=== PATIENT | female | born 1960 | race Caucasian/White ===

== ENCOUNTER 2020-10-31 04:35 | Emergency (ER) | payer OTHER, SELFPAY ==
[2020-10-31] VITALS (12 sets, daily range): BP systolic 137–165; BP diastolic 70–92; PULSE 67–73; RESP 16–18; TEMP 36.5; O2SAT 95–100
[2020-10-31] MEDS: methylPREDNISolone SOD SUCC 125 MG VIAL IV PUSH (05:06)
[2020-10-31] MEDS: FAMOTIDINE 20 MG/2 ML VIAL IV PUSH (05:06)
[2020-10-31] MEDS: EPINEPHrine HCL INJ 1 MG/ML AMPUL 0.3 MG IM (05:06)
--- NOTE | 2020-10-31 05:14 | ED.ALLEREA ---
HPI - Allergic Reaction General Chief complaint: Allergic Reaction Stated complaint: allergic reaction Time Seen by Provider: 10/31/20 04:44 History of Present Illness HPI narrative: Patient 60-year-old female who presents to emergency department with chief complaint of allergic reaction. The patient reports that she was on penicillin and then started having urticaria and had some facial swelling. Patient states that her primary doctor started her on prednisone she was taking 60 mg daily and then titrated down to 40 mg. The patient states that when she titrated down to 40 mg she started having residual urticaria patient took some oral Benadryl but continued to have itching. Patient was transported by EMS and was given Benadryl in route to the emergency department. Patient states she is feeling a little bit better now did have some facial swelling during this time. Related Data Home Medications Medication Instructions Recorded Confirmed penicillin V potassium 500 mg PO Q6H 10/31/20 prednisone 0 mg PO PER PKG DIR 10/31/20 Allergies Allergy/AdvReac Type Severity Reaction Status Date / Time erythromycin base Allergy Unknown Unknown Verified 09/21/20 14:29 Sulfa (Sulfonamide Allergy Unknown UNKNOWN Verified 09/21/20 14:29 Antibiotics) Review of Systems Review of Systems: Narrative: CONSTITUTIONAL: Denies fever, chills, or sweats. EYES: Denies visual changes, redness, or discharge. ENT: Denies rhinorrhea, congestion, sore throat, or otalgia. CARDIOVASCULAR: Denies chest pain, palpitations, or edema. RESPIRATORY: Denies cough or dyspnea. GASTROINTESTINAL: Denies abdominal pain, nausea, vomiting, or diarrhea. GENITOURINARY: Denies dysuria or hematuria. SKIN: Denies rash or itching. MUSCULOSKELETAL: Denies back pain, joint pain, or myalgia. NEUROLOGIC: Denies headache, numbness, or weakness. PSYCHIATRIC: Denies anxiety or depression. A 10 system review of systems was completed on the patient and is negative except for what is stated in the HPI. Nursing and ancillary documentation was reviewed. [facility] Past Medical History Medical History (Updated 10/31/20 @ 06:45 by Dangelo Pepe MD) Arthralgia of hands, bilateral Chronic rhinitis Essential hypertension FH: colon cancer Gastro-esophageal reflux disease without esophagitis H/O migraine Hypothyroidism Mixed hyperlipidemia Neck pain Vitamin B12 deficiency Vitamin D deficiency Family History Family History Other Carcinoma of colon Social History Social History Smoking status: Former smoker Second hand tobacco smoke exposure: No Smoking end date: 12/02/84 Alcohol intake: never Exam Narrative: Exam Narrative: GENERAL: Well-appearing, well-nourished, and in no acute distress. HEAD: Normocephalic, atraumatic. EYES: PERRLA and EOMI. ENT: Nares clear, no rhinorrhea or epistaxis. Mucous membranes moist. There is mild angioedema of the face, no airway compromise NECK: Supple. CHEST: Clear to auscultation. No respiratory distress. HEART: Regular rate and rhythm. No murmur heard. Normal peripheral pulses. ABDOMEN: Soft, nontender, nondistended, normal active bowel sounds. EXTREMITIES: Normal range of motion. No edema. SKIN: Warm, dry, urticarial rash. NEURO: No focal deficits. Alert and oriented x3. PSYCH: Normal mood and affect. Course Vital Signs Vital signs: Vital Signs Temperature 36.5 C 10/31/20 04:34 Pulse Rate 67 10/31/20 04:34 Respiratory Rate 18 10/31/20 04:34 Blood Pressure 159/81 H 10/31/20 04:34 Pulse Oximetry 100 10/31/20 04:34 Temperature 36.5 C 10/31/20 04:34 Pulse Rate 67 10/31/20 04:34 Respiratory Rate 18 10/31/20 04:34 Blood Pressure 139/75 10/31/20 06:31 Pulse Oximetry 97 10/31/20 06:45 Discharge Plan Discharge Clinical Impression: Allergic reacti
--- NOTE | 2020-10-31 07:21 | PC.NURSE ---
Assumed care of pt, per Elmer RN - pt is to be watched for aprox 2 more hours due to epi administration. Pt is resting w/ lights dimmed - alert to verbal stimuli. VSS. at bedside. Discussed POC at this time.
== END 2020-10-31 09:02 | disposition home or self-care (01) ==
PROVIDERS: Emergency Provider Emergency Medicine; PCP Family Medicine
DX: T78.3XXA Angioneurotic edema, initial encounter (principal)
CPT/HCPCS: 96372; 96374; 96375; 99284; J0171; J2930

== ENCOUNTER 2021-04-09 07:18 | Emergency (ER) | payer OTHER, SELFPAY ==
[2021-04-09 07:22] VITALS: BP 142/71; PULSE 87; RESP 16; TEMP 36.9; O2SAT 100
--- NOTE | 2021-04-09 07:30 | ED.ALLEREA ---
HPI - Allergic Reaction General Chief complaint: Allergic Reaction Stated complaint: Allergic Reaction to Medications Time Seen by Provider: 04/09/21 07:26 History of Present Illness HPI narrative: 61 yo female presents from home for a rash. She reports that she was diagnosed with a UTI at the end of last month. She was started on Cipro. She was on this for 5 days without improvement. She was then changed to macrobid. She syas that the symptoms seemed to be improving at first but returned after completion of the antibiotic. On 04/06 she was then prescribed a second course of macrobid. She reports that she continues to have mild lower abdominal discomfort and urinary frequency. Yesterday she also developed an itchy red rash to the face and extremities. She took benadryl and this has since nearly resolved. No lip tongue, or throat swelling. She does have a h/o severe allergic reaction to penicillin. Related Data Home Medications Medication Instructions Recorded Confirmed loratadine 10 mg tablet 10 mg PO DAILY 11/30/20 03/22/21 Allergies Allergy/AdvReac Type Severity Reaction Status Date / Time Penicillins Allergy Severe Hives Verified 04/09/21 07:31 erythromycin base Allergy Unknown Unknown Verified 04/09/21 07:31 Sulfa (Sulfonamide Allergy Unknown UNKNOWN Verified 04/09/21 07:31 Antibiotics) Review of Systems Review of Systems: All systems reviewed & are unremarkable except as noted in HPI and below Constitutional: Constitutional: Denies chills, Denies fever(s) and Denies weakness Eyes: Eyes: Reports no additional eye complaints ENT: Reports system reviewed and no additional complaints, except as documented Cardiovascular: Cardiovascular: Denies chest pain Respiratory: Respiratory: Denies dyspnea Gastrointestinal: Gastrointestinal: Reports abdominal pain, Denies diarrhea and Denies vomiting Genitourinary: Genitourinary: Denies hematuria, Reports nocturia, Denies dysuria and Denies flank pain Musculoskeletal: Musculoskeletal: Denies back pain Neurologic: Reports system reviewed and no additional complaints, except as documented [facility] Past Medical History Medical History (Updated 04/09/21 @ 09:04 by Andrei Aguirre MD) Arthralgia of hands, bilateral Chronic rhinitis Essential hypertension FH: colon cancer Gastro-esophageal reflux disease without esophagitis H/O migraine Hypothyroidism Mixed hyperlipidemia Neck pain Vitamin B12 deficiency Vitamin D deficiency Family History Family History Other Carcinoma of colon Social History Social History Smoking packs per day: 0.5 Smoking cigarettes per day: 10.0 Years smoked: 5 Smoking pack-years: 2.50 Smoking status: Never smoker Tobacco type: cigarettes Second hand tobacco smoke exposure: No Smoking end date: 12/02/84 Alcohol intake: never Substance use: never Gender identity (if verbalized by the patient): Female Exam Const: General: healthy appearing, no acute distress and alert Orientation/consciousness: patient oriented x3 HENMT: Head: normal to inspection General nose exam: Normal nares present Mouth: Yes Normal oral and palatal mucosa present and Yes lip normal Throat: posterior oropharynx normal Neck: Neck: normal visual inspection Chest: Chest palpation & inspection: tenderness Resp: Effort & Inspection: normal respiratory effort Auscultation: clear to auscultation bilaterally, no rales, no rhonchi and no wheezes Cardio: Jugular venous distension: no JVD Rate: regular rate Rhythm: regular rhythm Heart sounds: no murmurs GI: Inspection: non-distended GI Palp: Yes Soft to palpation and No Tenderness to palpation present (GI) Skin: General skin exam: normal color Neuro: General: patient oriented x3 and moves all extremities Speech: normal speech Extrem: General: no edema Psych: Appearan
[2021-04-09 08:17] VITALS: BP 119/69; PULSE 88; RESP 14; O2SAT 100
[2021-04-09 08:21] LABS: Basophils Percent Auto 0.4 % (0.2-1.2); Eosinophils Absolute Auto 0.2 K/mm3 (0-0.3); Eosinophils Percent Auto 3.6 % (0-4.4); Hematocrit 38.8 % (37.0-47.0); Hemoglobin 12.8 g/dL (12.0-15.0); Immature Granulocyte Absolute 0.01 K/mm3 (0.00-0.031); Immature Granulocyte Percent A 0.2 % (0-0.5); Immature Platelet Fraction Pct 5.9 % (0.9-11.2); Lymphocytes Absolute Auto 0.23 K/mm3 (0.9-3.2); Lymphocytes Percent Auto 4.1 % (18.3-44.2); Mean Corpuscular Volume 90.9 fl (80-100); Monocytes Absolute Auto 0.1 K/mm3 (0.1-0.6); Monocytes Percent Auto 1.6 % (2.6-8.5); Neutrophils Percent Auto 90.1 % (45.5-73.1); Platelet Count Result 169 k/mm3 (150-375); Red Blood Count 4.27 M/mm3 (4.2-5.4); Red Cell Distribution Width 13.8 % (11.5-14.5); White Blood Count 5.6 K/mm3 (4.5-10.0)
[2021-04-09 08:29] LABS: Add Urine Microscopic? YES; Appearance Urine Cloudy (Clear); Bacteria Urine Trace /hpf; Bilirubin Urine Negative (Negative); Blood Urine Negative (Negative); Color Urine Yellow (Yellow); Glucose Urine UA Negative (Negative); Ketones Urine Negative (Negative); Leukocyte Esterase Ur Negative LEU/UL (NEGATIVE); Mucus Urine Rare /lpf; Nitrate Urine Negative (Negative); Protein Urine Negative (Negative); RBC Urine 0-2 /hpf (0-2); Specific Grav Ur 1.009 (1.001-1.035); Squamous Epithelial Cell Urine Rare /hpf (Few); Urobilinogen Urine Negative mg/dL (<2.0)
[2021-04-09 08:55] LABS: Alanine Aminotransferase 91 U/L (4-35); Albumin Level 3.6 g/dL (3.5-5.1); Alkaline Phosphatase 139 U/L (38-126); Anion Gap 7 mmol/L (8-16); Aspartate Amino Transferase 68 U/L (14-36); Bilirubin,Total 2.8 mg/dL (0.2-1.3); Blood Urea Nitrogen 9 mg/dL (7-17); Calcium 9.2 mg/dL (8.4-10.2); Carbon Dioxide 26 mmol/L (22-30); Chloride 107 mmol/L (98-107); Estimated CRCL calculation 83 ml/min; Estimated Glomerular Filt Rate > 60; Glucose 124 mg/dL (65-105); Lipase 43 U/L (23-300); Potassium 3.5 mmol/L (3.4-5.0); Sodium 140 mmol/L (137-145)
[2021-04-09 09:21] VITALS: BP 129/73; PULSE 86; RESP 16; O2SAT 100
== END 2021-04-09 09:23 | disposition home or self-care (01) ==
PROVIDERS: Emergency Provider Emergency Medicine; PCP Family Medicine
DX: L27.0 Generalized skin eruption due to drugs and medicaments taken internally (principal); T37.8X5A Adverse effect of other specified systemic anti-infectives and antiparasitics, initial encounter; I10 Essential (primary) hypertension; K21.9 Gastro-esophageal reflux disease without esophagitis; E03.9 Hypothyroidism, unspecified; E78.2 Mixed hyperlipidemia; E53.8 Deficiency of other specified B group vitamins; E55.9 Vitamin D deficiency, unspecified; Z87.891 Personal history of nicotine dependence
CPT/HCPCS: 36415; 80053; 81001; 83690; 85025; 85055; 87086; 99283

== ENCOUNTER 2022-05-24 08:48 | Emergency (ER) | payer OTHER, SELFPAY ==
--- NOTE | ~2022-05-24 | XR_ITS ---
EXAMINATION: XR shoulder RT min 2V DATE: 05/24/2022 10:15 INDICATION: Right shoulder pain. Injury. TECHNIQUE: 4 views of right shoulder were obtained. COMPARISON: Right shoulder radiographs 03/26/2011 FINDINGS: Bone alignment is normal. No fracture. There is mild osteoarthritis of glenohumeral joint a nd acromioclavicular joint. IMPRESSION: 1. Mild polyarticular osteoarthritis. Reviewed, dictated and finalized at location A.
--- NOTE | ~2022-05-24 | CT_ITS ---
EXAMINATION: CT facial & cervical spine wo DATE: 05/24/2022 09:33 INDICATION: Head injury. TECHNIQUE: Computed tomography (CT) of the maxillofacial region and cervical spine was performed with out intravenous contrast. Automated exposure control and iterative reconstruction technique were empl oyed. The dose-length product was 415.15 mGy-cm. COMPARISON: None FINDINGS: MAXILLOFACIAL CT: There is left periorbital soft tissue swelling. The orbits are normal. There is mild mucosal thickeni ng in the ethmoid sinuses. There is leftward deviation of the nasal septum. No fracture. CERVICAL SPINE CT: There is 4 degrees dextrocurvature of cervical spine. There is kyphosis of cervical spine. There is 2 mm anterolisthesis of C3 on C4 and 2 mm retrolisthesis of C5 on C6. Vertebral body heights are jessica l. There is moderately decreased disc height at C3-C4 and severely decreased disc height from C4-C5 t hrough C6-C7. The following disc levels are specifically discussed: C2-C3: There is no uncovertebral joint osteoarthritis. There is severe bilateral facet joint osteoart hritis. There is no neural foraminal stenosis. There is no central canal stenosis. C3-C4: There is moderate right and mild left uncovertebral joint osteoarthritis. There is severe bila teral facet joint osteoarthritis. There is mild left neural foraminal stenosis. There is mild central canal stenosis. C4-C5: There is severe bilateral uncovertebral joint osteoarthritis. There is severe bilateral facet joint osteoarthritis. There is mild bilateral neural foraminal stenosis. There is mild central canal stenosis. C5-C6: There is severe bilateral uncovertebral joint osteoarthritis. There is mild bilateral facet alisia int osteoarthritis. There is mild bilateral neural foraminal stenosis. There is mild central canal st enosis. C6-C7: There is mild right and severe left uncovertebral joint osteoarthritis. There is moderate bila teral facet joint osteoarthritis. There is mild left neural foraminal stenosis. There is mild central canal stenosis. C7-T1: There is no uncovertebral joint osteoarthritis. There is moderate bilateral facet joint osteoa rthritis. There is no neural foraminal stenosis. There is no central canal stenosis. IMPRESSION: 1. No fracture. 2. Severe cervical spondylosis. Reviewed, dictated and finalized at location A.
--- NOTE | ~2022-05-24 | CT_ITS ---
EXAMINATION: CT brain wo con DATE: 05/24/2022 09:33 INDICATION: Head injury. TECHNIQUE: Computed tomography (CT) of the head was performed without intravenous contrast. The mA wa s adjusted according to patient size. Iterative reconstruction technique was employed. The dose-lengt h product was 605.33 mGy-cm. COMPARISON: Head CT 09/30/2009 FINDINGS: There is no intracranial hemorrhage, acute infarction, or abnormal intracranial mass lesion . The ventricles are normal in size. There is mild mucosal thickening in the ethmoid sinuses. The mas toid air cells are normal. There is left periorbital soft tissue swelling. The orbits are normal. IMPRESSION: 1. Normal brain. Reviewed, dictated and finalized at location A. IMPRESSION: 1. Normal brain.
[2022-05-24 08:48] VITALS: BP 142/81; PULSE 87; RESP 18; TEMP 36.1; O2SAT 100
--- NOTE | 2022-05-24 08:52 | ED.FALL ---
HPI - Fall General Chief Complaint: Fall Stated Complaint: Fall, Head Injury Time Seen by Provider: 05/24/22 08:50 History of Present Illness HPI Narrative: 62-year-old female presents the emergency room for evaluation of head injury sustained from a fall. Patient states that she was attempting to rescue an animal that fell out of a nest, when her dogs were left outside. She then began to nisha after the dogs and tripped striking her face on concrete. Patient has recently injured her left ankle, requiring her to wear a orthotic boot. Patient is also awaiting knee rotator cuff repair on the right arm, so she was unable to catch her fall with her hands. Patient denies any LOC, altered mental status, confusion, nausea vomiting, or changes in her vision and hearing. Related Data Home Medications Medication Instructions Recorded Confirmed loratadine 10 mg tablet (Claritin) 10 mg PO DAILY 11/30/20 04/03/22 solifenacin 10 mg tablet (Vesicare) 10 mg PO DAILY 08/17/21 04/03/22 trimethoprim 100 mg tablet 100 mg PO DAILY 08/17/21 04/03/22 Allergies Allergy/AdvReac Type Severity Reaction Status Date / Time Penicillins Allergy Severe Hives Verified 05/24/22 09:00 nitrofurantoin Allergy Mild Rash Verified 05/24/22 09:00 erythromycin base Allergy Unknown Unknown Verified 05/24/22 09:00 Sulfa (Sulfonamide Allergy Unknown UNKNOWN Verified 05/24/22 09:00 Antibiotics) Review of Systems Review of Systems: CONSTITUTIONAL: Denies fever, chills, or sweats. EYES: Denies visual changes, redness, or discharge. ENT: Denies rhinorrhea, congestion, sore throat, or otalgia. CARDIOVASCULAR: Denies chest pain, palpitations, or edema. RESPIRATORY: Denies cough or dyspnea. GASTROINTESTINAL: Denies abdominal pain, nausea, vomiting, or diarrhea. GENITOURINARY: Denies dysuria or hematuria. SKIN: Reports laceration of forehead MUSCULOSKELETAL: Denies back pain, joint pain, or myalgia. NEUROLOGIC: Reports headache PSYCHIATRIC: Denies anxiety or depression. [facility] Past Medical History Medical History Arthralgia of hands, bilateral Chronic rhinitis Elevated liver enzymes Essential hypertension FH: colon cancer Gastro-esophageal reflux disease without esophagitis H/O migraine Hypothyroidism Knee pain Mixed hyperlipidemia Neck pain Urinary symptom or sign Uterine prolapse Vitamin B12 deficiency Vitamin D deficiency Family History Family History Other Carcinoma of colon Social History Social History Smoking packs per day: 0.5 Smoking cigarettes per day: 10.0 Years smoked: 5 Smoking pack-years: 2.50 Tobacco type: cigarettes Second hand tobacco smoke exposure: No Smoking end date: 12/02/84 Alcohol intake: never Substance use: never Gender identity (if verbalized by the patient): Female Exam Narrative: GENERAL: Well-appearing, well-nourished, and in no acute distress. HEAD: Normocephalic, abrasion noted to left maxilla, stellate laceration to forehead EYES: PERRLA and EOMI. ENT: Nares clear, no rhinorrhea or epistaxis. Mucous membranes moist. Oropharynx without tonsillar hypertrophy exudate or other lesions. Bilateral TMs pearly grissom nonbulging NECK: Supple. No adenopathy or masses. No cervical spine tenderness, no step-offs, full range of motion, no obvious bony abnormality CHEST: Clear to auscultation. No respiratory distress. No wheezes rales or rhonchi HEART: Regular rate and rhythm. No murmur heard. Normal peripheral pulses. ABDOMEN: Soft, nontender, nondistended, normal active bowel sounds. EXTREMITIES: Normal range of motion. No edema. Right shoulder: Limited range of motion; left lower extremity: Orthotic boot in place SKIN: Warm, dry, no rash. See: HEAD NEURO: No focal deficits. Alert and oriented x3. PSYCH: Normal mood and affect. Course
[2022-05-24] MEDS: TETANUS,DIPHTHERIA,AC PERTUSSIS ADULT (0.5 ML) BOOSTRIX IM (10:28)
[2022-05-24 10:29] VITALS: BP 150/79; PULSE 73; RESP 18; O2SAT 100
== END 2022-05-24 10:41 | disposition home or self-care (01) ==
PROVIDERS: Emergency Provider Nurse Practitioner Family; PCP Family Medicine
DX: S01.01XA Laceration without foreign body of scalp, initial encounter (principal); M25.511 Pain in right shoulder; G89.29 Other chronic pain; Z23 Encounter for immunization; I10 Essential (primary) hypertension; K21.9 Gastro-esophageal reflux disease without esophagitis; E03.9 Hypothyroidism, unspecified; E78.2 Mixed hyperlipidemia; E53.8 Deficiency of other specified B group vitamins; E55.9 Vitamin D deficiency, unspecified; Z87.891 Personal history of nicotine dependence; M47.812 Spondylosis without myelopathy or radiculopathy, cervical region; M19.011 Primary osteoarthritis, right shoulder; W01.0XXA Fall on same level from slipping, tripping and stumbling without subsequent striking against object, initial encounter
CPT/HCPCS: 12001; 70450; 70486; 72125; 73030; 90471; 90715; 99284

== ENCOUNTER 2023-03-13 12:54 | Outpatient (CLI) | payer OTHER, SELFPAY ==
--- NOTE | ~2023-03-13 | DEXA_ITS ---
Bone Density Report Name: LINUS COFFEY Age: 63 Sex: Female Ethnicity: White Date of : 1960 Indication: postmenopausal; screening for osteoporosis; Referring Provider: GRACE RETANA Study: Bone densitometry was performed. Exam Date: March 13, 2023 Accession number: [id number] Bone Density: Region BMD T-score Z-score Classification AP Spine(L1-L4) 1.195 1.3 2.8 Normal Femoral Neck (Left) 0.807 -0.4 1.0 Normal Total Hip (Left) 0.907 -0.3 0.7 Normal Femoral Neck (Right) 0.789 -0.5 0.8 Normal Total Hip (Right) 0.902 -0.3 0.7 Normal Total Hip Mean 0.905 -0.3 0.7 Normal World Health Organization criteria for BMD impression classify patients as: Normal (T-score at or above -1.0), Osteopenia (T-score between -1.0 and -2.5), or Osteoporosis (T-score at or below -2.5). Clinical Information Provided by Patient: Is being treated for osteoporosis Has used the following medications: Miacalcin (i.e. calcitonin), Vitamin D Patient maximum height was 66 Menopause Age: 44 No regular weight bearing exercise Drinks caffeinated beverages Onset of menses at age 18 Number of children 2 Impression: The patient has normal bone mass. Discussion: It is important to ask patients whether they are taking their medications and to encourage continued and appropriate compliance with their osteoporosis therapies to reduce fracture risk. It is also important to review their risk factors and encourage appropriate calcium and vitamin D intakes, exercise, fall prevention and other lifestyle measures. Follow-Up: Consider a repeat BMD and Vertebral Fracture Assessment (VFA) exam in 2 years or sooner if medically necessary, to reassess this patient's status. Reported by: GAGE on 03/13/2023 1:11:00 PM. Reviewed, dictated and finalized at location A. MTDD
== END 2023-03-13 12:55 | disposition home or self-care (01) ==
LOC: ANHIMG 12:56
PROVIDERS: PCP Family Medicine; Visit Provider Family Medicine
DX: Z78.0 Asymptomatic menopausal state (principal)
CPT/HCPCS: 77080